=== PATIENT | female | born 1925 | race Caucasian/White ===

== ENCOUNTER 2017-01-05 20:53 | Emergency (ER) | payer MEDICARE, BC ==
[2017-01-05 21:30] VITALS: TEMP 99
[2017-01-05 23:55] VITALS: BP 112/60; PULSE 83; RESP 17; O2SAT 97
== END 2017-01-05 21:52 | disposition home or self-care (01) | DRG 195 ==
LOC: ED 20:53
DX: J18.9 Pneumonia, unspecified organism (principal)
CPT/HCPCS: 71010; 99282; 99283